=== PATIENT | male | born 1960 | race Caucasian/White ===

== ENCOUNTER 2017-07-11 10:09 | Emergency (ER) | payer OTHER ==
[2017-07-11 10:55] LABS: #Basophils 0.1 thou/uL (0.0-0.2); #Lymphocytes 1.5 thou/uL (1.20-3.40); #Monocytes 0.5 thou/uL (0.11-0.59); #Neutrophils 10.6 thou/uL (1.40-6.50); %Basophils 0.9 % (0.0-1.0); %Eosinophils 0.2 % (0.0-10.0); %Lymphocytes 11.6 % (21.0-51.0); %Monocytes 3.9 % (0.0-10.0); Hematocrit 44.2 % (42.0-52.0); Mean Platelet Volume 7.5 fL (7.4-10.4); Red Blood Cell (RBC) Count 5.07 mill/uL (4.70-6.10); White Blood Cell (WBC) Count 12.8 thou/uL (4.8-10.8)
[2017-07-11 11:16] LABS: ALT (SGPT) 45 U/L (8-55); AST (SGOT) 33 U/L (5-34); Alkaline Phosphatase 140 U/L (40-150); Anion Gap 16 mmol/L (10-20); BUN (Urea Nitrogen) 14 mg/dL (8.4-25.7); Bilirubin, Total 0.7 mg/dL (0.2-1.2); CK (CPK) 288 U/L (30-200); Calc. Creatinine Clearance 0 mL/min (70-130); Carbon Dioxide 21 mmol/L (22-29); Chloride 103 mmol/L (98-107); Estimated GFR-MDRD 84; Globulin 2.8 g/dL (2.4-3.5); Protein, Total 7.1 g/dL (6.0-8.3)
--- NOTE | 2017-07-11 13:25 | CT ---
CT OF ABDOMEN AND PELVIS: Date: 07/11/17 COMPARISON: None. HISTORY: Abdominal pain, left flank pain, history of renal stone disease. TECHNIQUE: Serial axial CT imaging at 5 mm intervals obtained from the lung bases through the pubic symphysis w ithout contrast. Coronal reformatted imaging obtained. FINDINGS: Lack of contrast media limits assessment of viscera, bowel, vascular structures, and for lymphadenop athy. There is a nodular density in the inferior posterior lingula on axial image 11/coronal image 61 sean uring 8.0 mm. There is adjacent linear density. Right lung base unremarkable. No free intraperitonea l air or fluid seen. Liver, gallbladder, spleen, pancreas, and adrenal glands are grossly unremarkable. Numerous bilateral renal calculi are present. On the right, this includes a prominent lower pole sto ne measuring 1.3 cm in transverse dimension. Punctate stones are noted in upper pole and mid pole of right kidney as well. No evidence for obstructive uropathy noted on the right. There are numerous intrarenal calculi present on the left. This includes calculi in the left lower p ole measuring up to 5.0 mm, as well as a mid pole stone on the left measuring 1.3 cm. There is hydro nephrosis, nephromegaly, and perinephric stranding on the left, evidence of obstructive uropathy. Th is is secondary to a stone within the proximal left ureter at the axial level of the L2-3 interverte bral disc space. This obstructing stone within the left ureter measures approximately 5.0 mm on ellsworth sverse dimension and 4.0 mm on craniocaudal dimension. There is diverticulosis involving the sigmoid colon and descending colon, mild. No evidence for jose carlos l inflammatory change or bowel obstruction. Small bilateral fat-containing inguinal hernias are pres ent. Scattered atherosclerotic calcification of infrarenal abdominal aorta noted. No acute osseous abnormality is seen. IMPRESSION: Numerous prominent bilateral renal calculi. Obstructive uropathy on the left secondary to a 4-5 mm s tone within the proximal left ureter. POS: [facility]
== END 2017-07-11 12:37 | disposition home or self-care (01) ==
LOC: SCSER 10:09
DX: N20.0 Calculus of kidney (principal); N20.1 Calculus of ureter; K40.20 Bilateral inguinal hernia, without obstruction or gangrene, not specified as recurrent; K57.90 Diverticulosis of intestine, part unspecified, without perforation or abscess without bleeding; R91.1 Solitary pulmonary nodule; K21.9 Gastro-esophageal reflux disease without esophagitis
CPT/HCPCS: 74176; 80053; 82150; 82550; 85025; 96361; 96374; 96375; J1170; J2270

== ENCOUNTER 2017-07-14 14:41 | Outpatient (CLI) | payer OTHER ==
[2017-07-14 15:57] LABS: Hematocrit 41.8 % (42.0-52.0); Mean Platelet Volume 6.9 fL (7.4-10.4); Red Blood Cell (RBC) Count 4.61 mill/uL (4.70-6.10)
[2017-07-14 16:00] LABS: Bilirubin Small (Negative); Blood, Urine Large (Negative); Glucose, Urine (Dipstick) Negative (Negative); Ketone, Urine 40 mg/dL (Negative); Nitrite Negative (Negative); Protein, Urine (Dipstick) Trace mg/dL (Neg-Trace); Urobilinogen 0.2 mg/dL (0.2-1.0)
[2017-07-14 16:02] LABS: Bacteria/HPF None Seen HPF (None Seen); Hyaline Casts/LPF 0-3 HYALINE CAST LPF (0-3 Hyaline); RBC/HPF GREATER THAN 50-TNTC HPF (0-3); Squamous Epithelial 0-3 HPF (0-3)
[2017-07-14 16:15] LABS: Prothrombin Time 13.4 SEC (12.0-14.7)
[2017-07-14 16:16] LABS: PTT 35.9 SEC (22.9-36.1)
[2017-07-14 16:18] LABS: Anion Gap 14 mmol/L (10-20); BUN (Urea Nitrogen) 18 mg/dL (8.4-25.7); Calc. Creatinine Clearance 0 mL/min (70-130); Calcium 9.6 mg/dL (7.8-10.44); Carbon Dioxide 30 mmol/L (22-29); Chloride 100 mmol/L (98-107); Estimated GFR-MDRD 45
--- NOTE | 2017-07-15 14:44 | EKG ---
Test Reason : Blood Pressure : / mmHG Vent. Rate : 060 BPM Atrial Rate : 060 BPM P-R Int : 188 ms QRS Dur : 078 ms QT Int : 370 ms P-R-T Axes : 053 032 030 degrees QTc Int : 370 ms Normal sinus rhythm ST elevation, consider early repolarization Borderline ECG Confirmed by PURNIMA LEON ([id number]) on 07/15/2017 2:43:44 PM Referred By: CHRISTOPHER Confirmed By:PURNIAM LEON
== END 2017-07-14 14:42 | disposition home or self-care (01) ==
LOC: LABBT 14:41
PROVIDERS: ATTEND Urology
DX: N20.1 Calculus of ureter (principal); N21.0 Calculus in bladder
CPT/HCPCS: 80048; 81001; 85027; 85610; 85730; 87086; 93005; 93010

== ENCOUNTER 2017-07-16 06:50 | Day surgery (SDC) | payer OTHER ==
[2017-07-14 14:56] VITALS: BMI 28.8
[2017-07-16] MEDS ORDERED: Levofloxacin 500 mg/D5W 100 ml Premix Bag ONE (08:13)
[2017-07-16] MEDS ORDERED: Fentanyl 100 MCG/2 ML VIAL ONE (09:21)
[2017-07-16] MEDS ORDERED: Midazolam HCl 2 mg/2 ml Vial ONE (09:23)
[2017-07-16] MEDS ORDERED: Glycopyrrolate 0.2 MG/ML 5 ML SYRINGE ONE (09:52)
[2017-07-16] MEDS ORDERED: Propofol 200 MG/20 ML VIAL ONE (09:52)
[2017-07-16] MEDS ORDERED: Dexamethasone 20 MG/5 ML VIAL ONE (09:52)
[2017-07-16] MEDS ORDERED: Ondansetron HCl/PF 4 MG/2 ML Vial ONE (09:52)
[2017-07-16] MEDS ORDERED: Phenazopyridine HCl 97.5 MG TABLET ONE (12:18)
--- NOTE | 2017-07-16 12:45 | RAD ---
RETROGRADE IVP: COMPARISON: CT of the abdomen/pelvis 07/11/17. HISTORY: Left stent placement. FINDINGS/IMPRESSION: A single limited intraoperative fluoroscopic view of the abdomen was submitted for interpretation. There is a left ureteral stent. There is a questionable calcification along the proximal aspect of the stent. There also appears to be calcification overlying the right renal shadow. POS: [facility]
[2017-07-16] MEDS ORDERED: Promethazine HCl 25 MG/ML VIAL ONE (13:10)
--- NOTE | 2017-07-16 13:27 | OP ---
DATE OF PROCEDURE: 07/16/2017 SERVICE: Urology SURGEON: Nick Tello M.D. PREOPERATIVE DIAGNOSIS: Bilateral nephrolithiasis. POSTOPERATIVE DIAGNOSIS: Bilateral nephrolithiasis with ureteral narrowing on the left. PROCEDURE PERFORMED: Left ureteroscopy with laser lithotripsy of stone, basket extraction of stone fragments and 6 x 26 double-J stent placement with balloon dilation of ureteral narrowing. INDICATIONS FOR PROCEDURE: Mr. Garrido is a 57-year-old white male who presented to the office with a left-sided kidney stones with poorly controlled pain and bilateral large nephrolithiasis. His init ial labs at his ER visit were normal. However, on his preoperative labs he was noted to have an acu te kidney injury with elevated creatinine. As such, we are bringing him in today for his ureterosco py and unobstruction of his left side which should help kidney as well as remove the large stones th at are within the kidney as well as the obstructing ureteral stone. Of note, he will still need to come back to have his right side treated at another date. DESCRIPTION OF PROCEDURE: After identification of his arm band, verification and consent, the patie dylan was brought back to the operating room where he underwent general anesthesia with endotracheal in tubation. He was then placed in dorsal lithotomy position, prepped and draped in usual sterile fash ion. After appropriate timeout, a lubricated 22 Malaysian rigid cystoscope was introduced per urethra into the bladder. Attention was then turned towards the left ureteral orifice which was cannulated with a 0.035 sensor wire to the level of the renal pelvis. A dual-lumen catheter was then advanced over the sensor wire up to the level of the mid ureter where an Amplatz Super Stiff wire was then ad vanced through the second lumen up to the level of the renal pelvis. The dual-lumen was then remove d and sensor wire was then affixed to the drapes as a safety wire. A 11/13 x 46 cm ureteral access sheath was then advanced over the Super Stiff wire up to the level of the mid ureter. There was sig nificant difficulty passing the mid ureter. Therefore, the inner cannula was removed leaving the ou ter sheath in place and the sensor wire as a safety wire. The Super Stiff wire was also removed. A flexible digital ureteroscope was passed into the ureteral access sheath up to that point and inspe ction of the ureter carried out which demonstrated that there was no stone there, but the patient di d have a narrowing of the ureter. As such, I did not feel it I would likely be able to pass this wi thout some dilation. Therefore, the ureteroscope was withdrawn and the Super Stiff wire was replace d back into the patient's renal pelvis through the ureteral access sheath. A ureteral Max balloon d ilator was then advanced over the area of narrowing and dilation was performed at a 4 cm length to 12 Malaysian diameter up to 26 atmospheres in 3 different segments to fully expand the narrowed segment . Upon completion, the ureteroscope was placed back into the ureter and it appeared that the narrow ed area was slightly wider. There was not any significant mucosal tearing. The Super Stiff wire wa s then replaced with the inner cannula back into the renal pelvis and attempts to advance the ureter al access sheath were again attempted, still with only minimal advancement past the narrowed segment and with significant tightness of the ureter, I felt that it was likely that I would not be able to pass this segment on this ureteroscopy. Therefore, the Super Stiff wire was left in place, but the sheath was removed and an 11 x 13 x 28 cm ureteral access sheath was then advanced over the Super S tiff wire up to the same level of the previous obstruction. The inner cannula and the Super Stiff w kareen were then removed leaving the outer sheath and the sensor wire in place as a safety wire. The d igital ureteroscope was then passed up the ureteral access sheath up to the level of the renal pelvi s without any difficulty. The stone within the ureter was blown into the kidney and therefore it wa s lasered there with a 200 micron laser fiber, the additional large 1 cm stone was also fragmented d own using the dusting settings to break it up completely. Two additional stones were also identifie d within the calices, which were also fragmented using the same laser fiber. At that point a 1.9 Fr ench 0 tip nitinol basket was used to retrieve all fragments that were over 1 mm in size. Upon radha johnson pyeloscopy, there was significant amount of debris and sediment within the kidney which made pyelo scopy difficult. From the best of my ability I did not see that there were any stone fragments larg er than approximately 1 mm to maybe 1.5 mm present. All pieces bigger than that to the best of my k nowledge have been removed. After searching extensively to look for any remaining fragments and not finding anything, I felt it would be reasonable enough to leave a stent and just back out. Pull ba ck ureteroscopy was employed and no other stones were seen within the ureter. The ureteroscope and sheath were then removed and the cystoscope was backloaded over the sensor wire back into the bladde r. A 6 x 26 double-J stent was then advanced over the sensor wire up to the level of the renal pelv is. The wire was then removed leaving a good curl in the renal pelvis and good curl in the bladder, the bladder was emptied and the cystoscope removed. The patient was then awakened and taken to PAC U for recovery in stable condition. COMPLICATIONS: None. ESTIMATED BLOOD LOSS: Minimal. RETAINED TUBES AND DRAINS: A 6 x 26 double J- stent. SPECIMENS: Stone for stone analysis. DISPOSITION: The patient will be discharged home and follow up with me in 1 week for stent removal.
== END 2017-07-16 14:10 | disposition home or self-care (01) ==
LOC: SDC 06:50
PROVIDERS: ATTEND Urology
PROC: 0TC18ZZ Extirpation of Matter from Left Kidney, Via Natural or Artificial Opening Endoscopic (ICD-10-PCS; principal; 2017-07-16)
PROC: 0T778DZ Dilation of Left Ureter with Intraluminal Device, Via Natural or Artificial Opening Endoscopic (ICD-10-PCS; principal; 2017-07-16)
PROC: 0TF78ZZ Fragmentation in Left Ureter, Via Natural or Artificial Opening Endoscopic (ICD-10-PCS; principal; 2017-07-16)
DX: N20.2 Calculus of kidney with calculus of ureter (principal); N13.5 Crossing vessel and stricture of ureter without hydronephrosis; F17.290 Nicotine dependence, other tobacco product, uncomplicated; K21.9 Gastro-esophageal reflux disease without esophagitis; H91.90 Unspecified hearing loss, unspecified ear; Z79.899 Other long term (current) drug therapy; Z88.5 Allergy status to narcotic agent; Z91.012 Allergy to eggs; Z98.890 Other specified postprocedural states
CPT/HCPCS: 74420; 82365; 88300; 96374; C1769; J1100; J1956; J2250; J2405; J2550; J2704; J3010

== ENCOUNTER 2017-09-03 07:34 | Outpatient (CLI) | payer OTHER ==
--- NOTE | 2017-09-03 10:09 | ULT ---
RENAL ULTRASOUND: History: Hydronephrosis. Comparison: Recent CT. Technique: Multiple longitudinal and transverse imaging of the kidneys and bladder obtained using a m ultihertz curvilinear transducer. Real-time images and color flow sonography demonstrates the bladder to be unremarkable with no evidence of bladder wall masses or lesions. A lower pole area of calcific ation is seen in the right kidney compatible with lower pole right renal calculi. The left renal calc eileen noted on CT are difficult to visualized on today's ultrasound. No evidence of hydroureteronephrosis is seen. IMPRESSION: Again, visualization of lower pole right renal calculi. POS: [facility]
--- NOTE | 2017-09-03 10:15 | RAD ---
ABDOMEN ONE VIEW: History: 57-year-old male with history of ureteral stone with hydronephrosis. There is an approximately 1.5 cm diameter irregularly shaped calculus in the right lower renal pole r egion. There is some very tiny faint opacities overlying the left kidney which is partially obscured by fecal material and gas in the colon. No overt ureteral calculus. IMPRESSION: Large right lower pole renal calculus. Several faint, very small opacities overlying the left kidney region and possibly tiny left renal calculi. POS: [facility]
== END 2017-09-03 07:35 | disposition home or self-care (01) ==
LOC: ULT 07:34
PROVIDERS: ATTEND Urology
DX: N13.2 Hydronephrosis with renal and ureteral calculous obstruction (principal); N28.89 Other specified disorders of kidney and ureter
CPT/HCPCS: 74000; 76770

== ENCOUNTER 2018-03-09 13:58 | Outpatient (CLI) | payer OTHER ==
--- NOTE | 2018-03-09 15:29 | RAD ---
ABDOMEN 1 VIEW: Date: 03/09/18 HISTORY: N20.0, nephrolithiasis. COMPARISON: 09/03/17. FINDINGS: Unchanged appearance to the 16.0 mm calculus projecting over the right renal collecting system. Punct ate left renal calculi are present. Small phleboliths in the pelvis. Mild levoscoliosis. No dilated or air-filled loops of large or small bowel. IMPRESSION: Similar appearance of the nephrolithiasis. POS: [facility]
== END 2018-03-09 13:59 | disposition home or self-care (01) ==
LOC: RAD 13:58
PROVIDERS: ATTEND Urology
DX: Z12.5 Encounter for screening for malignant neoplasm of prostate (principal); N20.0 Calculus of kidney
CPT/HCPCS: 36415; 74018; G0103

== ENCOUNTER 2018-05-12 11:35 | Outpatient (CLI) | payer OTHER ==
[2018-05-12 12:59] LABS: Bilirubin Negative (Negative); Blood, Urine Negative (Negative); Clarity CLEAR (Clear); Glucose, Urine (Dipstick) Negative (Negative); Leukocyte Negative (Negative); Nitrite Negative (Negative); Protein, Urine (Dipstick) Negative (Neg-Trace); Urobilinogen 0.2 mg/dL (0.2-1.0)
[2018-05-12 13:01] LABS: Hemoglobin 15.2 g/dL (14.0-18.0); Mean Corpuscular Hemoglobin 30.6 pg (27.0-31.0); Mean Corpuscular Volume 87.4 fL (78.0-98.0); Mean Platelet Volume 7.3 fL (7.4-10.4); Platelet Count 224 thou/uL (130-400); RBC Distribution Width 11.9 % (11.5-14.5); Red Blood Cell (RBC) Count 4.97 mill/uL (4.70-6.10); White Blood Cell (WBC) Count 5.3 thou/uL (4.8-10.8)
[2018-05-12 13:02] LABS: Bacteria/HPF None Seen HPF (None Seen); Hyaline Casts/LPF 0-3 HYALINE CAST LPF (0-3 Hyaline); Squamous Epithelial None Seen HPF (0-3); WBC/HPF 0-3 HPF (0-3)
[2018-05-12 13:15] LABS: PTT 31.4 SEC (22.9-36.1); Prothrombin Time 12.8 SEC (12.0-14.7)
[2018-05-12 13:22] LABS: Anion Gap 14 mmol/L (10-20); BUN (Urea Nitrogen) 15 mg/dL (8.4-25.7); Calc. Creatinine Clearance 0 mL/min (70-130); Calcium 9.6 mg/dL (7.8-10.44); Carbon Dioxide 24 mmol/L (22-29); Chloride 105 mmol/L (98-107); Estimated GFR-MDRD Greater than 90; Glucose 88 mg/dL (70-105); Potassium 4.2 mmol/L (3.5-5.1); Sodium 139 mmol/L (136-145)
== END 2018-05-12 11:36 | disposition home or self-care (01) ==
LOC: LABBT 11:35
PROVIDERS: ATTEND Urology
DX: Z01.818 Encounter for other preprocedural examination (principal); N20.0 Calculus of kidney
CPT/HCPCS: 80048; 81001; 85027; 85610; 85730; 87086; 93005; 93010

== ENCOUNTER → 2018-05-27 | Day surgery (SDC) | payer OTHER ==
[2018-05-12 11:45] VITALS: BMI 29.5
[~2018-05-27] MED LIST: B & O 30 MG SUPP ONE; Fentanyl 100 MCG/2 ML VIAL ONE; Iothalamate Meglumine 60% 50 ML VIAL FS ONE; Levofloxacin 500 mg/D5W 100 ml Premix Bag ONE; Ondansetron HCl/PF 4 MG/2 ML Vial ONE; Promethazine HCl 25 MG/ML VIAL ONE; Scopolamine 1.5 mg/72 hour Patch ONE; diphenhydrAMINE 50 MG/ML VIAL ONE
--- NOTE | 2018-05-27 13:23 | RAD ---
TWO VIEWS FROM A RETROGRADE IVP: INDICATION: History of cystoscopy. COMPARISON: Prior KUB dated 03/09/18. FINDINGS: Two submitted postoperative images demonstrate canalization of the right renal collecting system. Pringle bsequent final submitted images demonstrate resolution of the previously seen right renal staghorn ca lculus. Small calcification is suspected within the right renal pelvis which may reflect a retained fragment adjacent to the right proximal pigtail of the right ureteral stent. This stent projects in the expected position. A small cystoscope is seen within the bladder. IMPRESSION: Interval lithotripsy of large staghorn calculus involving the right kidney. There is a small retaine d stone seen in the adjacent to the proximal aspect of the right ureteral stent. Right ureteral sten t projects in the expected position. POS: [facility]
--- NOTE | 2018-05-27 13:41 | OP ---
DATE OF SURGERY: 05/27/2018 SERVICE: Urology. SURGEON: Nick Tello M.D. PREOPERATIVE DIAGNOSIS: Right renal stone. POSTOPERATIVE DIAGNOSIS: Right renal stone. PROCEDURE PERFORMED: Right ureteroscopy, laser lithotripsy, stone manipulation, and placement of a 6 x 26 double-J stent with ureteral dilation. INDICATIONS FOR PROCEDURE: Mr. Garrido is a 58-year-old white male, who presented to me with original history of nephrolithiasis. He has previously undergone surgeries to remove stones, but had a very l arge 16-mm right lower pole stone, which I had recommended treatment for. Risks and benefits have be en discussed and he elected for ureteroscopic approach. DESCRIPTION OF PROCEDURE: After identification of armband and verification of consent, the patient w as brought back to the operating room and he was given general anesthesia with endotracheal intubatio n. He was then placed in dorsal lithotomy position, and prepped and draped in the usual sterile fas ion. After appropriate timeout, a lubricated 22-Turkmen rigid cystoscope was introduced per urethra i nto the bladder. Attention was turned to the right ureteral orifice, which was cannulated with a 0.0 35 sensor wire up to the level of the renal pelvis. The cystoscope was then removed and a dual-lumen catheter advanced over the sensor wire up to the level of the mid ureter. There was difficulty adva ncing the dual-lumen catheter past the mid ureter indicating a narrowing at this segment. An Amplatz Super Stiff wire was then placed through the dual lumen up to the level of the renal pelvis and the dual lumen removed. A 11/13 x 46 cm ureteral access sheath was attempted to be passed over the Super Stiff wire, but it got hung up in the area of the narrowing. Therefore, the sheath was removed and a UroMax balloon, 4 cm 12-Turkmen, dilator was used to dilate multiple segments along the mid ureter t o allow for better passage of the sheath. This did allow the sheath to go a little bit further up, b ut due to a stricture, there was still inability to pass the sheath beyond this point. Therefore, th e sheath was left at the point of the stricture and an ureteroscope was advanced the rest of the way up the ureter into the renal pelvis. The renal pelvis did not demonstrate any stones except in the l ower pole where the 60-mm stone was found. It was a dark brown hard stone. Using a 200-micron laser fiber and the dusting setting, the stone was shaved down to a smaller size and several large pieces carved off the stone until it was small enough that it could be lifted out of the lower pole using a 1.9-Turkmen 0 tip nitinol basket and deposited into the upper pole of the kidney where it was easier t o work on. The remaining stone was then fragmented down using the 200-micron laser fiber. There was an extremely large amount of stone burden afterwards that are in the small to medium small range, pr obably ranging between 1 and 4 mm. These may be too large to pass on their own, but given that a sig nificant amount of time had already elapsed and it was starting to get difficult to visualize within the kidney, I elected to just place a stent, allow for the smaller pieces to pass, and then come back to remove the remaining stones at a later date. The ureteroscope was then withdrawn and the uretera l access sheath removed. The cystoscope was backloaded over the sensor wire back into the bladder an d a 6 x 26 double-J stent advanced over the sensor wire up into the kidney. The wire was then remove d leaving a good curl in the renal pelvis and good curl in the bladder. The bladder was then emptied and cystoscope removed. The patient has 16-A B and O suppository placed in his rectum. He was then awakened and taken to PACU for recovery in stable condition. COMPLICATIONS: None. ESTIMATED BLOOD LOSS: Minimal. RETAINED TUBES AND DRAINS: A 6 x 26 double-J stent on the right. SPECIMENS: None. DISPOSITION: The patient will be discharged home and we will plan a repeat ureteroscopy in community health 1-2 weeks to clear out the remaining stone, after which time he can finally have his stent remov ed.
== END | disposition home or self-care (01) ==
LOC: SDC 11:30
PROVIDERS: ATTEND Urology
PROC: 0TF68ZZ Fragmentation in Right Ureter, Via Natural or Artificial Opening Endoscopic (ICD-10-PCS; principal; 2018-05-27)
PROC: 0T768DZ Dilation of Right Ureter with Intraluminal Device, Via Natural or Artificial Opening Endoscopic (ICD-10-PCS; principal; 2018-05-27)
DX: N20.0 Calculus of kidney (principal); K21.9 Gastro-esophageal reflux disease without esophagitis; E78.00 Pure hypercholesterolemia, unspecified; Z87.442 Personal history of urinary calculi; Z88.5 Allergy status to narcotic agent; Z98.890 Other specified postprocedural states
CPT/HCPCS: 74420; 96374; C1769; J1200; J1956; J2405; J2550; J3010; Q9961

== ENCOUNTER 2018-06-07 11:08 | Outpatient (CLI) | payer OTHER ==
[2018-06-07 13:01] LABS: Bilirubin Negative (Negative); Blood, Urine Large (Negative); Clarity CLOUDY (Clear); Glucose, Urine (Dipstick) Negative (Negative); Leukocyte Moderate (Negative); Nitrite Negative (Negative); Protein, Urine (Dipstick) 100 mg/dL (Neg-Trace); Specific Gravity, Urine 1.017 (1.002-1.036); Urobilinogen 0.2 mg/dL (0.2-1.0); pH, Urine 5.5 (5.0-9.0)
[2018-06-07 13:06] LABS: Bacteria/HPF None Seen HPF (None Seen); Pathc Cast-AUWi Flag 2.03 (0-2.49); Squamous Epithelial 0-3 HPF (0-3)
[2018-06-07 13:11] LABS: Yeast-AUWi Flag 54.3 (0-25.0)
[2018-06-07 15:14] LABS: Hyaline Casts/LPF 0-3 HYALINE CAST LPF (0-3 Hyaline); RBC/HPF GREATER THAN 50-TNTC HPF (0-3); Yeast-All Forms None Seen HPF (None Seen)
== END 2018-06-07 11:09 | disposition home or self-care (01) ==
LOC: LABBT 11:08
PROVIDERS: ATTEND Urology
DX: Z01.812 Encounter for preprocedural laboratory examination (principal); N20.0 Calculus of kidney
CPT/HCPCS: 81001; 87086

== ENCOUNTER 2018-06-10 07:47 | Day surgery (SDC) | payer OTHER ==
[2018-06-07 11:49] VITALS: BMI 29.5
[2018-06-10] MEDS ORDERED: Levofloxacin 500 mg/D5W 100 ml Premix Bag ONE (09:07)
[2018-06-10] MEDS ORDERED: PROPOFOL 200 MG/20 ML VIAL ONE (11:00)
[2018-06-10] MEDS ORDERED: Ondansetron HCl/PF 4 MG/2 ML Vial ONE (11:00)
[2018-06-10] MEDS ORDERED: Glycopyrrolate 0.2 MG/ML 5 ML SYRINGE ONE (11:00)
[2018-06-10] MEDS ORDERED: Dexamethasone 20 MG/5 ML VIAL ONE (11:00)
[2018-06-10] MEDS ORDERED: Fentanyl 100 MCG/2 ML VIAL ONE (14:33)
--- NOTE | 2018-06-10 23:31 | OP ---
DATE OF SURGERY: 06/10/2018 SERVICE: Urology. SURGEON: Nick Tello MD PREOPERATIVE DIAGNOSIS: Right renal stones. POSTOPERATIVE DIAGNOSES: Right ureteral and renal stones. PROCEDURES PERFORMED: Right ureteroscopy, laser lithotripsy, basket extraction of stones, and replac ement of 6 x 26 double-J stent. INDICATION FOR PROCEDURE: Mr. Garrido is a 58-year-old white male, who I had previously seen for cysto scopy with laser lithotripsy of a very large lower pole right renal stone. He had incomplete fragmen tation at that time and due to significant duration under anesthesia and difficulty with visualizatio n, we stopped the procedure and decided to come back for a second look. All risks and benefits of th e surgery have been discussed and he has agreed to proceed forward. DESCRIPTION OF PROCEDURE: After identification of armband and verification of consent, the patient w as brought to the operating room. He underwent general anesthesia with endotracheal intubation. He was then placed in dorsal lithotomy position, prepped and draped in usual sterile fashion. After justin ropriate time-out, lubricated 22-Tanzanian rigid cystoscope was introduced per urethra into the bladder. Attention was turned to the right ureteral orifice from which there was a stent emanating. Flexibl e grasper was used to grasp the stent and bring it out to the level of urethral meatus. A 0.035 sens or wire was then advanced through the ureteral stent at the level of the renal pelvis. The stent was removed and discarded. A dual lumen catheter was then advanced over the sensor wire up to the level of the mid ureter, where there was some resistance. An Amplatz Super Stiff wire was then advanced t hrough the second lumen of the dual lumen at the level of the renal pelvis. The dual lumen was then removed and the sensor wire affixed to the drapes as a safety wire. An 11/13 x 46-cm ureteral access sheath was then advanced over the Super Stiff wire up to the level of the mid ureter, where there wa s resistance. I thought this may be due to the stricture again, but I went ahead and left the sheath there, took out the inner cannula and Super Stiff wire, and then proceeded with a flexible ureterosc opy. There was a significant amount of stone in a steinstrasse manner in the ureter that was probabl y holding up the ureteral access sheath from getting up. Using a 1.9-Tanzanian Zero Tip nitinol basket, the fragments were basketed out one by one until all the fragments have been cleared from the ureter . Once all the steinstrasse was removed, the inner cannula of the sheath was put back in along with the Super Stiff wire, which was fed back up to the renal pelvis. The sheath was then able to be adva nced easily to the level of the UPJ. The inner cannula and the Super Stiff wire were then removed wi thin the outer sheath and the sensor wire in place as a safety wire, which was affixed to the drapes. The flexible ureteroscope was then put back into the sheath into the kidney and a full pyeloscopy w as performed. There was one large fragment in the upper pole, a medium-sized fragment in the renal p jake, and a large amount of stone burden still present within the lower pole, most of which had been fragmented. The upper pole and mid pole stone were fragmented using a 200 micron laser fiber and th e larger pieces pulled out using 1.9-Tanzanian Zero Tip nitinol basket. There were no additional pieces worth basketing left anywhere in the renal pelvis except in the lower pole. There were no additiona l fragments that required lasering here, but there was a significant amount of stone burden, which wa s basketed out. Upon completion, there were only approximately 1 to 2-mm stones present within the l ower pole, the vast majority of which have been removed. Full pyeloscopy did not demonstrate any oth er residual large pieces and I felt that the patient was essentially stone-free with the remaining fe w pieces that he could pass on his own. The ureteroscope was then used for pullback ureteroscopy and no additional stones were seen within the ureter. The ureteroscope was then removed with the sheath and the cystoscope backloaded over the sensor wire back into the bladder. Attention was then turned to the right UO, for which the stent was fed over the wire back up into the kidney. The wire was th en pulled and there was a good curl in the kidney and a good curl in the bladder. A 6 x 26 double-J stent was used. There was no string left attached to the stent. The bladder was then emptied and th e cystoscope removed. The patient was then awakened and taken to PACU for recovery in stable conditi on. COMPLICATIONS: None. ESTIMATED BLOOD LOSS: Minimal. RETAINED TUBES AND DRAINS: A 6 x 26 double-J stent on the right. SPECIMENS: Stone for stone analysis. DISPOSITION: The patient will be discharged home and follow up with me in approximately 1 week for a cystoscopy and stent removal.
[2018-06-16 11:24] LABS: CA Oxalate Monohydrate 92 % (.); Color Brown (.); Stone Weight 217.6 mg (.)
== END 2018-06-10 17:25 | disposition home or self-care (01) ==
LOC: SDC 07:47
PROVIDERS: ATTEND Urology
PROC: 0TF38ZZ Fragmentation in Right Kidney Pelvis, Via Natural or Artificial Opening Endoscopic (ICD-10-PCS; principal; 2018-06-10)
PROC: 0T768DZ Dilation of Right Ureter with Intraluminal Device, Via Natural or Artificial Opening Endoscopic (ICD-10-PCS; principal; 2018-06-10)
PROC: 0TF68ZZ Fragmentation in Right Ureter, Via Natural or Artificial Opening Endoscopic (ICD-10-PCS; principal; 2018-06-10)
PROC: 0TC68ZZ Extirpation of Matter from Right Ureter, Via Natural or Artificial Opening Endoscopic (ICD-10-PCS; principal; 2018-06-10)
DX: N20.2 Calculus of kidney with calculus of ureter (principal); K21.9 Gastro-esophageal reflux disease without esophagitis; E78.00 Pure hypercholesterolemia, unspecified; F17.290 Nicotine dependence, other tobacco product, uncomplicated; Z79.899 Other long term (current) drug therapy; Z98.890 Other specified postprocedural states
CPT/HCPCS: 76001; 82365; 88300; C1769; J1100; J1956; J2405; J2704; J3010

== ENCOUNTER 2018-07-28 08:05 | Outpatient (CLI) | payer OTHER ==
--- NOTE | 2018-07-28 09:36 | ULT ---
RENAL ULTRASOUND: Comparison: None. History: Renal calculus. Recent lithotripsy of the right kidney. Comparison: 09-03-17 Technique: Multiplanar grayscale and color doppler images were obtained in a renal ultrasound. FINDINGS: There is an echogenic shadowing lesion in the mid portion of the right kidney measuring 8 mm in great est dimension. This may represent a nonobstructing renal calcification. No echogenic foci are seen in the left kidney. No hydronephrosis is seen on either side. The kidneys measure 12.6 and 12.8 cm on t he right and left, respectively. Limited visualization of the urinary bladder is unremarkable. IMPRESSION: Nonobstructing right renal calcification. POS: [facility]
== END 2018-07-28 08:06 | disposition home or self-care (01) ==
LOC: SCSULT 08:05
PROVIDERS: ATTEND Urology
DX: N20.0 Calculus of kidney (principal); N28.89 Other specified disorders of kidney and ureter
CPT/HCPCS: 76770

== ENCOUNTER 2019-10-12 09:20 | Outpatient (CLI) | payer OTHER ==
--- NOTE | 2019-10-12 09:47 | RAD ---
XR Chest Pa Lat STANDARD HISTORY: Influenza A. Cough COMPARISON: 10/17/2011 FINDINGS: The heart size is normal. The lungs are well expanded without focal areas of consolidation, pneumothorax or pleural effusions. IMPRESSION: No radiographic evidence of acute cardiopulmonary process.
== END 2019-10-12 09:21 | disposition home or self-care (01) ==
LOC: SCSRAD 09:20
PROVIDERS: ATTEND Physician Assistant Medical
DX: J10.1 Influenza due to other identified influenza virus with other respiratory manifestations (principal); R05 Cough
CPT/HCPCS: 71046

== ENCOUNTER 2024-10-20 14:19 | Outpatient (CLI) | payer OTHER ==
[2024-10-20 15:16] LABS: #Basophils 0.03 10x3/uL (0.0-0.2); %Basophils 0.5 % (0.0-1.0); %Eosinophils 2.1 % (0.0-10.0); %Lymphocytes 35.8 % (21.0-51.0); %Monocytes 6.8 % (0.0-10.0); %Neutrophils 54.6 % (42.0-75.0); Hematocrit 42.5 % (42.0-52.0); Hemoglobin 14.4 g/dL (14.0-18.0); Mean Corpuscular HGB CONC 33.9 g/dL (32.0-36.0); Mean Corpuscular Hemoglobin 29.3 pg (27.0-31.0); Mean Corpuscular Volume 86.6 fL (78.0-98.0); Mean Platelet Volume 9.3 fL (7.4-10.4); Platelet Count 212 10x3/uL (130-400); RBC Distribution Width 12.9 % (11.5-14.5); Red Blood Cell (RBC) Count 4.91 mill/uL (4.70-6.10)
[2024-10-20 15:30] LABS: Prothrombin Time 12.7 sec (12.0-14.7)
[2024-10-20 15:36] LABS: Anion Gap 11 mmol/L (10-20); BUN (Urea Nitrogen) 16 mg/dL (8.4-25.7); Calc. Creatinine Clearance 0 mL/min (70-130); Calcium 9.3 mg/dL (7.8-10.44); Carbon Dioxide 29 mmol/L (23-31); Chloride 105 mmol/L (98-107); Estimated GFR 97; Glucose 120 mg/dL (80-115); Sodium 141 mmol/L (136-145)
== END 2024-10-20 14:20 | disposition home or self-care (01) ==
LOC: LABBT 14:19
PROVIDERS: ATTEND Student in an Organized Health Care Education/Training Program
DX: Z01.818 Encounter for other preprocedural examination (principal); M75.102 Unspecified rotator cuff tear or rupture of left shoulder, not specified as traumatic; S43.432A Superior glenoid labrum lesion of left shoulder, initial encounter
CPT/HCPCS: 71046; 80048; 82306; 85025; 85610

== ENCOUNTER 2024-10-25 05:43 | Day surgery (SDC) | payer OTHER ==
[2024-10-20 14:41] VITALS: BMI 28.8
[2024-10-25] MEDS ORDERED: Acetaminophen 500 MG TAB ONE (06:19)
[2024-10-25] MEDS ORDERED: fentaNYL PF 100 MCG/2 ML SYRINGE ONE (06:23)
[2024-10-25] MEDS ORDERED: Midazolam HCl 2 mg/2 ml Vial ONE (06:23)
[2024-10-25] MEDS ORDERED: PROPOFOL 20 ML ONE (06:23)
[2024-10-25] MEDS ORDERED: Lidocaine 1% PF 5 ML VIAL ONE (06:24)
[2024-10-25] MEDS ORDERED: Rocuronium Bromide 10 MG/ML (10ML VIAL) ONE (06:24)
[2024-10-25] MEDS ORDERED: EPINEPHrine 1 MG/ML VIAL ONE (06:25)
[2024-10-25] MEDS ORDERED: Bupivacaine 0.25% HCL 30 ML VIAL ONE (06:25)
[2024-10-25] MEDS ORDERED: Tranexamic Acid 1,000 MG/10 ML VIAL ONE (06:25)
[2024-10-25] MEDS ORDERED: Sodium Chloride 0.9% 100 ML ONE (06:25)
[2024-10-25] MEDS ORDERED: CEFAZOLIN 2 GM VIAL ONE ×2 (07:00→13:08)
[2024-10-25] MEDS ORDERED: Lidocaine 1% (PF) 30 ML VIAL ONE (07:13)
[2024-10-25] MEDS ORDERED: Ropivacaine 0.5% HCl/PF (150 MG/30 ML VIAL) ONE (07:13)
[2024-10-25] MEDS ORDERED: Promethazine HCl 25 MG/ML VIAL IM PRN (07:30)
[2024-10-25] MEDS ORDERED: Ropivacaine 0.2% 550 ML 550 ML NERVE BLCK SCH (07:30)
[2024-10-25] MEDS ORDERED: Zolpidem Tartrate 5 MG TAB PO PRN (07:30)
[2024-10-25] MEDS ORDERED: oxyCODONE 5 MG TAB PO PRN ×2 (07:30→07:31)
[2024-10-25] MEDS ORDERED: Ondansetron PF 4 MG/2 ML Vial IVP PRN (07:30)
[2024-10-25] MEDS ORDERED: traMADol HCl 50 MG TAB PO PRN ×2 (07:30)
[2024-10-25] MEDS ORDERED: PHENYLEPHRINE-NS 100 MCG/ML 10 ML SYRINGE ONE (07:53)
[2024-10-25] MEDS ORDERED: Phenylephrine 40 MG/NS 250 ML 250 ML ONE (07:58)
[2024-10-25] MEDS ORDERED: Sodium Chloride 0.9% 250 ML 750 ML ONE (07:59)
[2024-10-25] MEDS ORDERED: Sodium Chloride 0.9% 400 ML ONE (07:59)
[2024-10-25] MEDS ORDERED: Phenylephrine 10 MG/ML VIAL ONE (07:59)
[2024-10-25] MEDS ORDERED: Ondansetron PF 4 MG/2 ML Vial ONE (08:21)
[2024-10-25] MEDS ORDERED: Dexamethasone 20 MG/5 ML VIAL ONE (08:21)
[2024-10-25] MEDS ORDERED: Ketorolac Tromethamine 30 MG (1 mL) VIAL IVP SCH (12:00)
[2024-10-25] MEDS ORDERED: Acetaminophen 500 MG TAB PO SCH (12:00)
[2024-10-25] MEDS ORDERED: SUGAMMADEX SODIUM 200 MG/2 ML VIAL ONE (12:48)
[2024-10-25] MEDS ORDERED: Scopolamine 1 mg/72 hour Patch TD SCH (13:30)
[2024-10-25] MEDS ORDERED: fentaNYL 50 mcg/mL 1 mL Vial ONE (13:32)
[2024-10-25] MEDS ORDERED: Promethazine HCl 25 MG/ML VIAL ONE (14:23)
[2024-10-25] MEDS ORDERED: Scopolamine 1 mg/72 hour Patch ONE (14:26)
[2024-10-25] MEDS ORDERED: HYDROcodone/Acetaminophen 5/325 mg Tablet ONE (15:28)
== END 2024-10-25 15:55 | disposition home or self-care (01) ==
LOC: SDC 05:43
PROVIDERS: ATTEND Student in an Organized Health Care Education/Training Program
PROC: 0LS44ZZ Reposition Left Upper Arm Tendon, Percutaneous Endoscopic Approach (ICD-10-PCS; principal; 2024-10-25)
DX: M75.122 Complete rotator cuff tear or rupture of left shoulder, not specified as traumatic (principal); S43.432A Superior glenoid labrum lesion of left shoulder, initial encounter; K21.9 Gastro-esophageal reflux disease without esophagitis; H91.93 Unspecified hearing loss, bilateral; E78.00 Pure hypercholesterolemia, unspecified; M25.312 Other instability, left shoulder; E78.5 Hyperlipidemia, unspecified; G47.33 Obstructive sleep apnea (adult) (pediatric); K57.30 Diverticulosis of large intestine without perforation or abscess without bleeding; F17.290 Nicotine dependence, other tobacco product, uncomplicated; Z98.890 Other specified postprocedural states; Z79.899 Other long term (current) drug therapy; Z88.5 Allergy status to narcotic agent
CPT/HCPCS: A4306; C1713; J0171; J0665; J1100; J2250; J2371; J2405; J2550; J2704; J2795; J3010; J7050